=== PATIENT | female | born 1970 | race Caucasian/White ===

== ENCOUNTER → 2016-05-30 | Outpatient (REF) | payer OTHER ==
[~2016-05-30] MED LIST: FLON0.054; VITAMINB12 IM
[2016-05-30 17:48] LABS: LUTEINIZING HORMONE 4.3 mIU/mL
[2016-05-30 17:49] LABS: FOLATE 10.8 NG/ML (>5.4); FOLLICLE STIMULATING HORMONE 5.5 mIU/mL; VITAMIN B12 LEVEL 289 PG/ML (247-911)
[2016-05-30 17:52] LABS: ALBUMIN 3.7 GM/DL (3.2-5.2); ALBUMIN/GLOBULIN RATIO 0.95 (1.00-1.93); ALKALINE PHOSPHATASE 111 U/L (45-117); ALT/SGPT 25 U/L (12-78); ANION GAP 8 MEQ/L (8-16); AST/SGOT 16 U/L (15-37); BILIRUBIN,TOTAL 0.2 MG/DL (0.2-1.0); BLOOD UREA NITROGEN 14 MG/DL (7-18); CALCIUM LEVEL 8.6 MG/DL (8.5-10.1); CARBON DIOXIDE LEVEL 29 MEQ/L (21-32); CHLORIDE LEVEL 104 MEQ/L (98-107); CREATININE FOR GFR 0.89 MG/DL (0.55-1.02); GLOMERULAR FILTRATION RATE > 60.0 (>58); GLUCOSE, FASTING 75 MG/DL (70-105); POTASSIUM SERUM 4.2 MEQ/L (3.5-5.1); SODIUM LEVEL 141 MEQ/L (136-145); THYROXINE (T4) 8.1 UG/DL (4.5-12.0); TOTAL PROTEIN 7.6 GM/DL (6.4-8.2)
[2016-05-30 18:06] LABS: DIFF SLIDE NUMBER 309; MEAN CORPUSCULAR HEMOGLOBIN 23.9 pg (27.0-33.0); MEAN CORPUSCULAR HGB CONC 32.1 g/dl (32.0-36.5); MEAN CORPUSCULAR VOLUME 74.5 fl (80.0-96.0); PLATELET COUNT, AUTOMATED 316 k/mm3 (150-450); RED CELL DISTRIBUTION WIDTH 14.4 % (11.5-14.5); WHITE BLOOD COUNT 9.1 K/mm3 (4.0-10.0)
[2016-05-30 21:05] LABS: BASOPHILS 1 % (0-4); EOSINOPHILS 1 % (0-5); MICROCYTOSIS 2+
[2016-05-30 21:06] LABS: ANISOCYTOSIS 1+
[2016-05-30 21:54] LABS: ERYTHROCYTE SEDIMENTATION RATE 9 mm/hr (0-20)
== END ==
LOC: M SFHCCLAY 13:59
PROVIDERS: ATTEND Family Medicine
DX: R50.9 Fever, unspecified (principal); R53.83 Other fatigue; R53.81 Other malaise; E53.8 Deficiency of other specified B group vitamins; R00.2 Palpitations; M25.50 Pain in unspecified joint; N95.1 Menopausal and female climacteric states; E55.9 Vitamin D deficiency, unspecified

== ENCOUNTER → 2016-07-07 | Outpatient (CLI) | payer OTHER ==
--- NOTE | 2016-07-07 14:49 | REP ---
Clinical: Cough . Comparison: 06/15/2005 . Technique: PA and lateral. Findings: The mediastinum and cardiac silhouette are normal. The lung to are clear and without acute consolidation, effusion, or pneumothorax. The skeletal structures are intact and normal. Impression: No acute cardiopulmonary process. If the patient remains symptomatic consider chest CT for further investigation.
== END ==
LOC: M CLY 14:12
PROVIDERS: ATTEND Family Medicine
DX: R05 Cough (principal)

== ENCOUNTER → 2016-07-07 | Outpatient (REF) | payer OTHER | LOC: M SFHCCLAY 13:57 | PROVIDERS: ATTEND Family Medicine | DX: R05 Cough (principal); R06.02 Shortness of breath; R09.1 Pleurisy ==

== ENCOUNTER → 2016-07-08 | Outpatient (REF) | payer OTHER ==
[2016-07-08 11:54] LABS: BASO % 0.1 % (0.0-1.0); EOS % 0.2 % (0.0-3.0); LARGE UNSTAINED CELL % 0.6 % (0.0-4.0); LYMPH # 1.1 K/mm3 (1.5-4.5); LYMPH % 14.5 % (24.0-44.0); MEAN CORPUSCULAR HEMOGLOBIN 22.9 pg (27.0-33.0); MEAN CORPUSCULAR HGB CONC 31.3 g/dl (32.0-36.5); MEAN CORPUSCULAR VOLUME 73.2 fl (80.0-96.0); MONO # 0.3 K/mm3 (0.0-0.8); MONO % 3.4 % (0.0-5.0); NEUTROPHILS # 6.2 K/mm3 (1.8-7.7); NEUTROPHILS % 81.3 % (36.0-66.0); PLATELET COUNT, AUTOMATED 307 k/mm3 (150-450); RED CELL DISTRIBUTION WIDTH 14.3 % (11.5-14.5); WHITE BLOOD COUNT 7.6 K/mm3 (4.0-10.0)
[2016-07-08 12:11] LABS: ALBUMIN 3.7 GM/DL (3.2-5.2); ALBUMIN/GLOBULIN RATIO 1.03 (1.00-1.93); ALKALINE PHOSPHATASE 105 U/L (45-117); ALT/SGPT 27 U/L (12-78); ANION GAP 11 MEQ/L (8-16); AST/SGOT 15 U/L (15-37); BILIRUBIN,TOTAL 0.3 MG/DL (0.2-1.0); BLOOD UREA NITROGEN 13 MG/DL (7-18); CALCIUM LEVEL 8.5 MG/DL (8.5-10.1); CARBON DIOXIDE LEVEL 22 MEQ/L (21-32); CHLORIDE LEVEL 108 MEQ/L (98-107); CREATININE FOR GFR 0.89 MG/DL (0.55-1.02); GLOMERULAR FILTRATION RATE > 60.0 (>58); GLUCOSE, FASTING 146 MG/DL (70-105); POTASSIUM SERUM 4.4 MEQ/L (3.5-5.1); SODIUM LEVEL 141 MEQ/L (136-145); TOTAL PROTEIN 7.3 GM/DL (6.4-8.2)
== END ==
LOC: M SFHCCLAY 07:28
PROVIDERS: ATTEND Family Medicine
DX: R05 Cough (principal); R06.02 Shortness of breath

== ENCOUNTER → 2016-07-11 | Outpatient (CLI) | payer OTHER ==
[~2016-07-11] MED LIST changes: +ISOVUE-370 76% 100ML VIAL (Q9967) As Ordered ONE
--- NOTE | 2016-07-11 14:47 | REP ---
Chest CT, pulmonary CT angiography: There are no emboli in the pulmonary trunk or in the central right or left pulmonary arteries. There are no emboli in the pulmonary artery lobe or segment branches. The lung to are clear. There are no masses, infiltrates or effusions. There is no mediastinal or hilar lymphadenopathy. There is no axillary lymphadenopathy. The thoracic aorta is unremarkable. Cardiac size is normal. There is no pericardial effusion. The visualized hepatic parenchyma, gallbladder, pancreas and spleen are homogeneous, normal size and unremarkable. The adrenals are unremarkable. Impression: There are no pulmonary emboli. Otherwise, negative CT study of the chest. Signed by Bryan Howard MD 07/11/2016 02:38 P
== END ==
LOC: M RAD 13:11
PROVIDERS: ATTEND Family Medicine
DX: R06.02 Shortness of breath (principal)
CPT/HCPCS: 71275; Q9967

== ENCOUNTER 2016-10-28 08:25 | Outpatient (CLI) | payer OTHER ==
[~2016-10-28] VITALS: Ht 172.7 cm; Wt 101.4 kg
[~2016-10-28 08:25] MED LIST changes: -ISOVUE-370 76% 100ML VIAL (Q9967) As Ordered ONE
[2016-10-28] MEDS ORDERED: methylPREDNISolone INJ 125 MG/2 ML VIAL (J2930) IV ONE (08:45)
[2016-10-28] MEDS ORDERED: ALBU17IN2 INH (08:52)
[2016-10-28] MEDS ORDERED: CYMB1CAP5 PO (08:52)
[2016-10-28] MEDS ORDERED: EPIP0.3I2 SC (08:52)
[2016-10-28] MEDS ORDERED: TYLE325C PO (08:52)
[2016-10-28] MEDS ORDERED: CYAN1000VL IM (08:52)
[2016-10-28] MEDS ORDERED: IRON DEXTRAN INJ 25 MG in NS 50 ML IV ONE (09:00)
[2016-10-28] MEDS ORDERED: IRON DEXTRAN IV ONE (10:00)
[2016-10-28] MEDS ORDERED: NS IV ONE (10:00)
== END 2016-10-28 13:45 | disposition home or self-care (01) ==
LOC: M INFU 08:25
PROVIDERS: ATTEND Family Medicine
DX: D50.9 Iron deficiency anemia, unspecified (principal); Z88.1 Allergy status to other antibiotic agents; Z88.2 Allergy status to sulfonamides; Z91.013 Allergy to seafood; Z91.018 Allergy to other foods; Z91.010 Allergy to peanuts; Z79.899 Other long term (current) drug therapy
CPT/HCPCS: 96365; 96366; J1750; J2930

== ENCOUNTER → 2016-11-24 | Outpatient (REF) | payer OTHER ==
[~2016-11-24] MED LIST changes: +ALBU17IN2 INH; +CYAN1000VL IM; +CYMB1CAP5 PO; +EPIP0.3I2 SC; +TYLE325C PO
[2016-11-24 17:43] LABS: FERRITIN 29 NG/ML (8-252)
[2016-11-24 19:05] LABS: BASO % 0.4 % (0.0-1.0); EOS # 0.3 K/mm3 (0.0-0.50); EOS % 3.6 % (0.0-3.0); LARGE UNSTAINED CELL # 0.1 K/mm3 (0.0-0.4); LARGE UNSTAINED CELL % 1.5 % (0.0-4.0); LYMPH # 2.4 K/mm3 (1.5-4.5); LYMPH % 27.1 % (24.0-44.0); MEAN CORPUSCULAR HEMOGLOBIN 23.5 pg (27.0-33.0); MEAN CORPUSCULAR HGB CONC 31.3 g/dl (32.0-36.5); MEAN CORPUSCULAR VOLUME 75.1 fl (80.0-96.0); MONO # 0.5 K/mm3 (0.0-0.8); MONO % 5.8 % (0.0-5.0); NEUTROPHILS # 5.1 K/mm3 (1.8-7.7); NEUTROPHILS % 61.6 % (36.0-66.0); PLATELET COUNT, AUTOMATED 279 k/mm3 (150-450); RED CELL DISTRIBUTION WIDTH 18.5 % (11.5-14.5); WHITE BLOOD COUNT 8.3 K/mm3 (4.0-10.0)
== END ==
LOC: M SFHCCLAY 13:03
PROVIDERS: ATTEND Family Medicine
DX: D50.9 Iron deficiency anemia, unspecified (principal)

== ENCOUNTER 2016-12-20 07:37 | Outpatient (CLI) | payer OTHER ==
[~2016-12-20] VITALS: Ht 172.7 cm; Wt 101.2 kg
[2016-12-20] MEDS ORDERED: methylPREDNISolone INJ 125 MG/2 ML VIAL (J2930) IV ONE (08:15)
[2016-12-20] MEDS ORDERED: IRON SUCROSE 25 MG in NS 50 ML IV ONE (08:30)
[2016-12-20] MEDS ORDERED: IRON SUCROSE 275 MG in NS 250 ML IV ONE (09:30)
[2016-12-20] MEDS ORDERED: IRON SUCROSE 300 MG in NS 250 ML IV ONE (09:30)
[2016-12-20] MEDS ORDERED: IRON SUCROSE 475 MG in NS 250 ML IV ONE (09:30)
== END 2016-12-20 13:45 | disposition home or self-care (01) ==
LOC: M INFU 07:37
PROVIDERS: ATTEND Family Medicine
DX: D50.9 Iron deficiency anemia, unspecified (principal); Z79.899 Other long term (current) drug therapy; Z88.1 Allergy status to other antibiotic agents; Z88.2 Allergy status to sulfonamides
CPT/HCPCS: 96365; 96366; J1756; J2930

== ENCOUNTER 2017-01-26 07:16 | Outpatient (CLI) | payer OTHER ==
[~2017-01-26] VITALS: Ht 172.7 cm; Wt 101.4 kg
[2017-01-26] MEDS ORDERED: IRON SUCROSE 25 MG in NS 50 ML IV ONE (07:45)
[2017-01-26] MEDS ORDERED: methylPREDNISolone INJ 125 MG/2 ML VIAL (J2930) IV ONE (07:45)
[2017-01-26] MEDS ORDERED: IRON SUCROSE 275 MG in NS 250 ML IV ONE (09:00)
== END 2017-01-26 13:00 | disposition home or self-care (01) ==
LOC: M INFU 07:16
PROVIDERS: ATTEND Family Medicine
DX: D50.9 Iron deficiency anemia, unspecified (principal); Z88.2 Allergy status to sulfonamides; Z91.013 Allergy to seafood; Z91.018 Allergy to other foods; Z88.1 Allergy status to other antibiotic agents; Z91.010 Allergy to peanuts; Z79.899 Other long term (current) drug therapy
CPT/HCPCS: 96365; 96366; J1756; J2930

== ENCOUNTER 2017-06-05 08:25 | Outpatient (CLI) | payer OTHER ==
[2017-06-05] MEDS: methylPREDNISolone INJ 125 MG/2 ML VIAL (J2930) IV (08:55)
[2017-06-05] MEDS: IRON SUCROSE 300 MG in NS 250 ML IV (09:13)
== END 2017-06-05 12:30 | disposition home or self-care (01) ==
LOC: M INFU 08:25
DX: D50.9 Iron deficiency anemia, unspecified (principal); I10 Essential (primary) hypertension; K21.9 Gastro-esophageal reflux disease without esophagitis; M79.7 Fibromyalgia; Z79.899 Other long term (current) drug therapy; Z91.010 Allergy to peanuts; Z91.013 Allergy to seafood; Z91.018 Allergy to other foods; Z88.2 Allergy status to sulfonamides; Z88.8 Allergy status to other drugs, medicaments and biological substances
CPT/HCPCS: J1756

== ENCOUNTER → 2017-09-21 | Outpatient (REF) | payer OTHER ==
[2017-09-21 11:53] LABS: ALBUMIN 3.8 GM/DL (3.2-5.2); ALBUMIN/GLOBULIN RATIO 1.09 (1.00-1.93); ALKALINE PHOSPHATASE 102 U/L (45-117); ALT/SGPT 37 U/L (12-78); AMYLASE 32 U/L (25-115); ANION GAP 6 MEQ/L (8-16); AST/SGOT 22 U/L (7-37); BASO % 0.3 % (0.0-1.0); BILIRUBIN,TOTAL 0.5 MG/DL (0.2-1.0); BLOOD UREA NITROGEN 16 MG/DL (7-18); CARBON DIOXIDE LEVEL 31 MEQ/L (21-32); CHLORIDE LEVEL 102 MEQ/L (98-107); CREATININE FOR GFR 0.91 MG/DL (0.55-1.30); EOS # 0.2 10^3/uL (0.0-0.50); EOS % 2.8 % (0.0-3.0); GLOMERULAR FILTRATION RATE > 60.0 (>58); GLUCOSE, FASTING 104 MG/DL (70-100); HEMATOCRIT 44.2 % (36.0-47.0); HEMOGLOBIN 14.8 g/dl (12.0-15.5); IMMATURE GRANULOCYTE % 0.4 % (0-3.0); IRON (FE) 79 UG/DL (50-170); LIPASE 150 U/L (73-393); LYMPH # 2.3 10^3/uL (1.5-4.5); LYMPH % 29.6 % (24.0-44.0); MAGNESIUM LEVEL 2.1 MG/DL (1.8-2.4); MEAN CORPUSCULAR HEMOGLOBIN 27.3 pg (27.0-33.0); MEAN CORPUSCULAR HGB CONC 33.5 g/dl (32.0-36.5); MEAN CORPUSCULAR VOLUME 81.5 fl (80.0-96.0); MONO # 0.5 10^3/uL (0.0-0.8); MONO % 6.5 % (0.0-5.0); NEUTROPHILS # 4.7 10^3/uL (1.8-7.7); NEUTROPHILS % 60.4 % (36.0-66.0); PLATELET COUNT, AUTOMATED 284 10^3/uL (150-450); POTASSIUM SERUM 3.2 MEQ/L (3.5-5.1); RED BLOOD COUNT 5.42 10^6/uL (4.00-5.40); RED CELL DISTRIBUTION WIDTH 13.4 % (11.5-14.5); SODIUM LEVEL 139 MEQ/L (136-145); TOTAL PROTEIN 7.3 GM/DL (6.4-8.2); WHITE BLOOD COUNT 7.8 10^3/uL (4.0-10.0)
[2017-09-26 14:16] LABS: VITAMIN D 1,25 DIHYDROXY 50.3 pg/mL (19.9-79.3)
[2017-09-26 14:16] LABS: TISSUE TRANSGLUTAMINASE IgA <2 U/mL (0-3)
== END ==
LOC: M SFHCCLAY 08:05
DX: D50.9 Iron deficiency anemia, unspecified (principal); R10.84 Generalized abdominal pain; E55.9 Vitamin D deficiency, unspecified; I10 Essential (primary) hypertension
CPT/HCPCS: 82150

== ENCOUNTER → 2017-11-14 | Outpatient (CLI) | payer OTHER ==
[2017-11-14 15:45] LABS: FREE T4 0.91 NG/DL (0.76-1.46); THYROID STIMULATING HORMONE 0.792 uIU/ML (0.358-3.740)
[2017-11-16 14:17] LABS: TISSUE TRANSGLUTAMINASE IgA <2 U/mL (0-3)
== END ==
LOC: M LAB 14:46
DX: R63.4 Abnormal weight loss (principal)
CPT/HCPCS: 84443

== ENCOUNTER 2017-12-26 11:13 | Day surgery (SDC) | payer OTHER ==
[~2017-12-26 11:13] MED LIST changes: -ALBU17IN2 INH; -CYAN1000VL IM; -CYMB1CAP5 PO; -EPIP0.3I2 SC; -FLON0.054; +LIDOCAINE 2% INJ 100 MG/5 ML SDV (FOR ANES.) As Ordered; +PROPOFOL 200 MG/20 ML VIAL As Ordered; -TYLE325C PO; -VITAMINB12 IM; +fentaNYL 100 MCG/2 ML INJECTION (J3010) As Ordered
[2017-12-26] MEDS: NS 1,000 ML IV (11:15)
[2017-12-26] MEDS ORDERED: PROPOFOL 200 MG/20 ML VIAL As Ordered (14:07)
== END 2017-12-26 15:00 | disposition home or self-care (01) ==
LOC: M OPP 11:13
DX: R10.84 Generalized abdominal pain (principal); R63.4 Abnormal weight loss; D50.9 Iron deficiency anemia, unspecified; I10 Essential (primary) hypertension; K44.9 Diaphragmatic hernia without obstruction or gangrene; K21.9 Gastro-esophageal reflux disease without esophagitis; R12 Heartburn; J45.909 Unspecified asthma, uncomplicated; Z88.1 Allergy status to other antibiotic agents; Z88.8 Allergy status to other drugs, medicaments and biological substances; Z88.2 Allergy status to sulfonamides; Z91.013 Allergy to seafood; Z91.010 Allergy to peanuts; Z79.899 Other long term (current) drug therapy; Z80.3 Family history of malignant neoplasm of breast
CPT/HCPCS: 45378

== ENCOUNTER 2018-01-05 07:16 | Outpatient (CLI) | payer OTHER ==
[2018-01-05] MEDS: methylPREDNISolone INJ 125 MG/2 ML VIAL (J2930) IV (07:50)
[2018-01-05] MEDS: IRON SUCROSE 300 MG in NS 250 ML OVER 90 MIN. IV (08:09)
== END 2018-01-05 11:30 | disposition home or self-care (01) ==
LOC: M INFU 07:16
DX: D50.9 Iron deficiency anemia, unspecified (principal); Z88.2 Allergy status to sulfonamides; Z88.1 Allergy status to other antibiotic agents; Z91.013 Allergy to seafood; Z91.010 Allergy to peanuts
CPT/HCPCS: J1756

== ENCOUNTER → 2018-07-02 | Outpatient (REF) | payer BC ==
[~2018-07-02] MED LIST changes: +ACET1TAB55 PO; +ALBU17IN2 INH; +CHLO25TA PO; +CYAN1000VL IM; +CYMB1CAP5 PO; +EPIP0.3I2 SC; +FLON0.054; -LIDOCAINE 2% INJ 100 MG/5 ML SDV (FOR ANES.) As Ordered; +PREG50CA PO; -PROPOFOL 200 MG/20 ML VIAL As Ordered; +TRAZ-186 PO; +TYLE325C PO; +VITAMINB12 IM; -fentaNYL 100 MCG/2 ML INJECTION (J3010) As Ordered
[2018-07-02 11:24] LABS: BASO % 0.3 % (0.0-1.0); EOS # 0.2 10^3/uL (0.0-0.50); EOS % 2.9 % (0.0-3.0); HEMATOCRIT 45.6 % (36.0-47.0); HEMOGLOBIN 14.9 g/dl (12.0-15.5); LYMPH # 2.2 10^3/uL (1.5-4.5); MEAN CORPUSCULAR HEMOGLOBIN 27.1 pg (27.0-33.0); MEAN CORPUSCULAR HGB CONC 32.7 g/dl (32.0-36.5); MEAN CORPUSCULAR VOLUME 82.9 fl (80.0-96.0); MONO # 0.4 10^3/uL (0.0-0.8); MONO % 5.5 % (0.0-5.0); NEUTROPHILS # 4.9 10^3/uL (1.8-7.7); NEUTROPHILS % 62.3 % (36.0-66.0); PLATELET COUNT, AUTOMATED 327 10^3/uL (150-450); WHITE BLOOD COUNT 7.9 10^3/uL (4.0-10.0)
[2018-07-02 11:43] LABS: HEMOGLOBIN A1c 5.5 %
[2018-07-02 12:37] LABS: ALBUMIN 3.7 GM/DL (3.2-5.2); ALT/SGPT 31 U/L (12-78); BILIRUBIN,TOTAL 0.4 MG/DL (0.2-1.0); BLOOD UREA NITROGEN 16 MG/DL (7-18); CALCIUM LEVEL 8.7 MG/DL (8.5-10.1); CARBON DIOXIDE LEVEL 25 MEQ/L (21-32); CHLORIDE LEVEL 107 MEQ/L (98-107); CREATININE FOR GFR 0.88 MG/DL (0.55-1.30); GLOMERULAR FILTRATION RATE > 60.0 (>58); GLUCOSE, FASTING 94 MG/DL (70-100); IRON (FE) 57 UG/DL (50-170); POTASSIUM SERUM 4.4 MEQ/L (3.5-5.1); SODIUM LEVEL 140 MEQ/L (136-145); TOTAL PROTEIN 7.1 GM/DL (6.4-8.2)
== END ==
LOC: M SFHCCLAY 08:45
PROVIDERS: ATTEND Family Medicine
DX: I10 Essential (primary) hypertension (principal); D50.9 Iron deficiency anemia, unspecified; R73.01 Impaired fasting glucose

== ENCOUNTER 2018-07-12 09:15 | Outpatient (CLI) | payer BC ==
[~2018-07-12] VITALS: Ht 167.6 cm; Wt 97.3 kg
[2018-07-12] MEDS ORDERED: methylPREDNISolone INJ 125 MG/2 ML VIAL (J2930) IV ONE (09:30)
[2018-07-12 09:32] VITALS: BP 144/79
[2018-07-12] MEDS ORDERED: IRON SUCROSE 300 MG in NS 250 ML IV ONE (10:00)
[2018-07-12 10:10] VITALS: BP 139/86
[2018-07-12 11:10] VITALS: BP 143/82
[2018-07-12 11:34] VITALS: BP 153/84
[2018-07-12 12:00] VITALS: BP 156/81
== END 2018-07-12 12:05 | disposition home or self-care (01) ==
LOC: M INFU 09:15
PROVIDERS: ATTEND Family Medicine
DX: D50.9 Iron deficiency anemia, unspecified (principal); Z88.1 Allergy status to other antibiotic agents; Z88.2 Allergy status to sulfonamides; Z91.013 Allergy to seafood; Z91.010 Allergy to peanuts
CPT/HCPCS: 96365; 96366; 96375; J1756; J2930

== ENCOUNTER 2019-01-16 06:55 | Outpatient (CLI) | payer BC ==
[~2019-01-16] VITALS: Ht 167.6 cm; Wt 97.3 kg
[~2019-01-16 06:55] MED LIST changes: +PROV108A INH
[2019-01-16 07:05] VITALS: BP 134/81
[2019-01-16] MEDS ORDERED: methylPREDNISolone INJ 125 MG/2 ML VIAL (J2930) IV ONE (07:30)
[2019-01-16] MEDS ORDERED: TRAM50TA2 PO (07:43)
[2019-01-16 07:50] VITALS: BP 140/78
[2019-01-16] MEDS ORDERED: IRON SUCROSE 300 MG in NS 250 ML OVER 90 MIN. IV ONE (08:00)
[2019-01-16 08:50] VITALS: BP 149/86
[2019-01-16 09:50] VITALS: BP 147/82
[2019-01-16 11:10] VITALS: BP 162/83
== END 2019-01-16 11:10 | disposition home or self-care (01) ==
LOC: M INFU 06:55
PROVIDERS: ATTEND Family Medicine
DX: D50.9 Iron deficiency anemia, unspecified (principal); Z88.2 Allergy status to sulfonamides; Z88.1 Allergy status to other antibiotic agents; Z91.010 Allergy to peanuts; Z91.013 Allergy to seafood
CPT/HCPCS: 96365; 96366; 96375; J1756; J2930

== ENCOUNTER 2019-05-09 08:16 | Outpatient (CLI) | payer BC ==
[~2019-05-09] VITALS: Ht 167.6 cm; Wt 97.3 kg
[~2019-05-09 08:16] MED LIST changes: +TRAM50TA2 PO
[2019-05-09 08:20] VITALS: BP 136/94
[2019-05-09] MEDS ORDERED: CHLO25TA PO (08:40)
[2019-05-09] MEDS ORDERED: methylPREDNISolone INJ 125 MG/2 ML VIAL (J2930) As Ordered ONE (08:45)
[2019-05-09] MEDS ORDERED: methylPREDNISolone INJ 125 MG/2 ML VIAL (J2930) IV ONE (09:00)
[2019-05-09 09:45] VITALS: BP 135/80
[2019-05-09] MEDS ORDERED: IRON SUCROSE 300 MG in NS 250 ML OVER 90 MIN. IV ONE (10:00)
[2019-05-09 10:45] VITALS: BP 145/81
[2019-05-09 12:30] VITALS: BP 136/84
== END 2019-05-09 12:30 | disposition home or self-care (01) ==
LOC: M INFU 08:16
PROVIDERS: ATTEND Family Medicine
DX: D50.9 Iron deficiency anemia, unspecified (principal); Z88.1 Allergy status to other antibiotic agents; Z88.2 Allergy status to sulfonamides; Z91.010 Allergy to peanuts; Z91.013 Allergy to seafood
CPT/HCPCS: 96365; 96366; J1756; J2930

== ENCOUNTER → 2019-06-13 | Outpatient (REF) | payer BC ==
[2019-06-13 16:58] LABS: BASO % 0.5 % (0.0-1.0); EOS # 0.2 10^3/uL (0.0-0.5); EOS % 2.7 % (0.0-3.0); HEMATOCRIT 46.9 % (36.0-47.0); HEMOGLOBIN 15.4 g/dl (12.0-15.5); LYMPH # 1.6 10^3/uL (1.5-5.0); LYMPH % 29.2 % (24.0-44.0); MEAN CORPUSCULAR HEMOGLOBIN 27.3 pg (27.0-33.0); MEAN CORPUSCULAR HGB CONC 32.8 g/dl (32.0-36.5); MEAN CORPUSCULAR VOLUME 83.2 fl (80.0-96.0); MONO # 0.4 10^3/uL (0.0-0.8); MONO % 6.4 % (0.0-5.0); NEUTROPHILS # 3.3 10^3/uL (1.5-8.5); NEUTROPHILS % 59.6 % (36.0-66.0); PLATELET COUNT, AUTOMATED 301 10^3/uL (150-450); RED BLOOD COUNT 5.64 10^6/uL (4.00-5.40); WHITE BLOOD COUNT 5.6 10^3/uL (4.0-10.0)
[2019-06-13 17:25] LABS: ALBUMIN 3.6 GM/DL (3.2-5.2); ALT/SGPT 57 U/L (12-78); BILIRUBIN,TOTAL 0.3 MG/DL (0.2-1.0); BLOOD UREA NITROGEN 12 MG/DL (7-18); CALCIUM LEVEL 8.9 MG/DL (8.5-10.1); CARBON DIOXIDE LEVEL 33 MEQ/L (21-32); CHLORIDE LEVEL 100 MEQ/L (98-107); CREATININE FOR GFR 0.87 MG/DL (0.55-1.30); FOLATE 12.8 NG/ML (>5.4); GLOMERULAR FILTRATION RATE > 60.0 (>51); GLUCOSE, FASTING 109 MG/DL (70-100); POTASSIUM SERUM 3.4 MEQ/L (3.5-5.1); SODIUM LEVEL 138 MEQ/L (136-145); THYROID STIMULATING HORMONE 0.901 uIU/ML (0.358-3.740); TOTAL PROTEIN 7.4 GM/DL (6.4-8.2); VITAMIN B12 LEVEL 300 PG/ML (247-911)
== END ==
LOC: M SFHCCLAY 10:25
PROVIDERS: ATTEND Family Medicine
DX: R23.2 Flushing (principal); D50.9 Iron deficiency anemia, unspecified; R20.2 Paresthesia of skin; R20.0 Anesthesia of skin; I10 Essential (primary) hypertension

== ENCOUNTER → 2019-11-19 | Outpatient (REF) | payer BC ==
[2019-12-22 15:40] LABS: HEMATOCRIT 41.9 % (36.0-47.0); HEMOGLOBIN 13.6 g/dl (12.0-15.5); MEAN CORPUSCULAR HEMOGLOBIN 27.9 pg (27.0-33.0); MEAN CORPUSCULAR HGB CONC 32.5 g/dl (32.0-36.5); PLATELET COUNT, AUTOMATED 268 10^3/uL (150-450); RED BLOOD COUNT 4.87 10^6/uL (4.00-5.40); WHITE BLOOD COUNT 8.9 10^3/uL (4.0-10.0)
[2020-01-03 16:58] LABS: BLOOD UREA NITROGEN 17 MG/DL (7-18); CALCIUM LEVEL 8.9 MG/DL (8.5-10.1); CARBON DIOXIDE LEVEL 28 MEQ/L (21-32); CHLORIDE LEVEL 108 MEQ/L (98-107); CREATININE FOR GFR 0.94 MG/DL (0.55-1.30); FREE T4 0.92 NG/DL (0.76-1.46); GLOMERULAR FILTRATION RATE > 60.0 (>51); GLUCOSE, FASTING 88 MG/DL (70-100); POTASSIUM SERUM 4.7 MEQ/L (3.5-5.1); SODIUM LEVEL 140 MEQ/L (136-145); THYROID STIMULATING HORMONE 0.988 uIU/ML (0.358-3.740)
== END ==
LOC: M SFHCCLAY 13:15
PROVIDERS: ATTEND Family Medicine
DX: R68.83 Chills (without fever) (principal); R19.7 Diarrhea, unspecified; R53.83 Other fatigue

== ENCOUNTER → 2020-06-09 | Outpatient (REF) | payer BC ==
[2020-06-09 16:21] LABS: BASO % 0.3 % (0.0-1.0); EOS # 0.2 10^3/uL (0.0-0.5); EOS % 1.7 % (0.0-3.0); HEMATOCRIT 45.9 % (36.0-47.0); HEMOGLOBIN 14.6 g/dl (12.0-15.5); LYMPH # 2.6 10^3/uL (1.5-5.0); LYMPH % 27.7 % (24.0-44.0); MEAN CORPUSCULAR HEMOGLOBIN 27.8 pg (27.0-33.0); MEAN CORPUSCULAR HGB CONC 31.8 g/dl (32.0-36.5); MEAN CORPUSCULAR VOLUME 87.3 fl (80.0-96.0); MONO # 0.6 10^3/uL (0.0-0.8); MONO % 6.7 % (2.0-8.0); NEUTROPHILS # 5.9 10^3/uL (1.5-8.5); NEUTROPHILS % 62.9 % (36.0-66.0); PLATELET COUNT, AUTOMATED 283 10^3/uL (150-450); RED BLOOD COUNT 5.26 10^6/uL (4.00-5.40); WHITE BLOOD COUNT 9.4 10^3/uL (4.0-10.0)
== END ==
LOC: M SFHCCLAY 14:05
PROVIDERS: ATTEND Family Medicine
DX: D50.9 Iron deficiency anemia, unspecified (principal)

== ENCOUNTER → 2020-07-03 | Outpatient (CLI) | payer BC ==
--- NOTE | 2020-07-03 17:19 | REP ---
INDICATION: SHORTNESS OF BREATH COMPARISON: 07/07/2016. TECHNIQUE: PA/Lateral FINDINGS: Lungs: Clear, no infiltrate. Heart: Normal in size. Mediastinum: Mediastinal silhouette unremarkable. Pleural angles: Unremarkable.. Bones and soft tissues: Unremarkable. IMPRESSION: No acute pulmonary disease. <Electronically signed by Bryan Lundy > 07/03/20 [id number]
== END ==
LOC: M CLY 15:08
PROVIDERS: ATTEND Family Medicine
DX: R06.02 Shortness of breath (principal)

== ENCOUNTER → 2020-09-01 | Outpatient (REF) | payer BC | LOC: M SFHCCLAY 14:50 | PROVIDERS: ATTEND Physician Assistant | DX: R05 Cough (principal) ==

== ENCOUNTER → 2020-09-28 | Outpatient (REF) | payer BC ==
[2020-09-29 11:43] LABS: BASO % 0.3 % (0.0-1.0); EOS # 0.3 10^3/uL (0.0-0.5); EOS % 2.7 % (0.0-3.0); HEMATOCRIT 47.1 % (36.0-47.0); LYMPH # 2.8 10^3/uL (1.5-5.0); LYMPH % 29.1 % (24.0-44.0); MEAN CORPUSCULAR HGB CONC 31.8 g/dl (32.0-36.5); MONO # 0.7 10^3/uL (0.0-0.8); MONO % 6.7 % (2.0-8.0); NEUTROPHILS # 5.8 10^3/uL (1.5-8.5); NEUTROPHILS % 60.7 % (36.0-66.0); PLATELET COUNT, AUTOMATED 249 10^3/uL (150-450); RED BLOOD COUNT 5.35 10^6/uL (4.00-5.40); WHITE BLOOD COUNT 9.6 10^3/uL (4.0-10.0)
[2020-09-29 12:10] LABS: ALBUMIN 4.1 GM/DL (3.2-5.2); ALT/SGPT 67 U/L (12-78); BILIRUBIN,TOTAL 0.5 MG/DL (0.2-1.0); BLOOD UREA NITROGEN 17 MG/DL (7-18); CALCIUM LEVEL 8.9 MG/DL (8.5-10.1); CARBON DIOXIDE LEVEL 28 MEQ/L (21-32); CHLORIDE LEVEL 107 MEQ/L (98-107); CREATININE FOR GFR 0.83 MG/DL (0.55-1.30); GLOMERULAR FILTRATION RATE > 60.0 (>51); GLUCOSE, FASTING 79 MG/DL (70-100); IRON (FE) 111 UG/DL (50-170); POTASSIUM SERUM 5.9 MEQ/L (3.5-5.1); SODIUM LEVEL 138 MEQ/L (136-145); TOTAL PROTEIN 7.4 GM/DL (6.4-8.2)
== END ==
LOC: M SFHCCLAY 13:49
PROVIDERS: ATTEND Family Medicine
DX: I10 Essential (primary) hypertension (principal); D50.9 Iron deficiency anemia, unspecified

== ENCOUNTER → 2020-09-28 | Outpatient (CLI) | payer BC ==
--- NOTE | 2020-09-28 14:56 | REP ---
INDICATION: LOW BACK PAIN. COMPARISON: None. TECHNIQUE: Five views FINDINGS: Five views of the lumbosacral spine show no acute fracture, dislocation or subluxation. The intervertebral disc spaces are symmetric and well maintained. There is no spondylolysis or spondylolisthesis. The pedicles are intact bilaterally and there is no destructive osseous lesion. IMPRESSION: Unremarkable lumbosacral spine series. <Electronically signed by Tyrone Gatson > 09/28/20 [id number]
== END ==
LOC: M CLY 14:05
PROVIDERS: ATTEND Family Medicine
DX: M54.5 Low back pain (principal)

== ENCOUNTER → 2020-10-08 | Outpatient (CLI) | payer BC ==
--- NOTE | 2020-10-08 20:42 | REPVR ---
PROCEDURE INFORMATION: Exam: MR Lumbar Spine Without Contrast Exam date and time: 10/08/2020 11:18 AM Age: 50 years old Clinical indication: Low back pain; Additional info: Lbp w/joni leg pain TECHNIQUE: Imaging protocol: Multiplanar magnetic resonance images of the lumbar spine without intravenous contrast. COMPARISON: CR SPINE LS COMPLETE 09/28/2020 2:11 PM FINDINGS: Vertebral body heights are maintained. Degenerative disc height loss at L5-S1. No abnormal marrow signal. No cord compression. No abnormal cord signal. Conus medullaris terminates at the L1 level. Paravertebral soft tissues are unremarkable. L1-L2: No significant canal or foraminal narrowing. L2-L3: No significant canal or foraminal narrowing. L3-L4: No significant canal or foraminal narrowing. L4-L5: Mild broad-based disc bulge and facet hypertrophy causes mild bilateral foraminal narrowing. No significant canal narrowing. L5-S1: Broad-based disc bulge and facet hypertrophy cause mild left and moderate right foraminal narrowing. No significant canal narrowing. 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 No MR evidence of nerve root compression. Electronically signed by: Jhonny Segura On 10/08/2020 20:41:57 PM
== END ==
LOC: M PLAIMG 10:39
PROVIDERS: ATTEND Family Medicine
DX: M79.605 Pain in left leg (principal); M79.604 Pain in right leg; M51.26 Other intervertebral disc displacement, lumbar region; M51.27 Other intervertebral disc displacement, lumbosacral region; M47.816 Spondylosis without myelopathy or radiculopathy, lumbar region

== ENCOUNTER → 2020-11-25 | Outpatient (CLI) | payer BC ==
[2020-11-25 14:35] LABS: BASO % 0.5 % (0.0-1.0); EOS # 0.2 10^3/uL (0.0-0.5); EOS % 2.3 % (0.0-3.0); HEMATOCRIT 46.2 % (36.0-47.0); HEMOGLOBIN 14.9 g/dl (12.0-15.5); LYMPH # 2.4 10^3/uL (1.5-5.0); LYMPH % 28.7 % (24.0-44.0); MEAN CORPUSCULAR HGB CONC 32.3 g/dl (32.0-36.5); MEAN CORPUSCULAR VOLUME 86.7 fl (80.0-96.0); MONO # 0.5 10^3/uL (0.0-0.8); MONO % 5.8 % (2.0-8.0); NEUTROPHILS # 5.1 10^3/uL (1.5-8.5); NEUTROPHILS % 62.2 % (36.0-66.0); PLATELET COUNT, AUTOMATED 248 10^3/uL (150-450); RED BLOOD COUNT 5.33 10^6/uL (4.00-5.40); WHITE BLOOD COUNT 8.2 10^3/uL (4.0-10.0)
[2020-11-25 15:11] LABS: ERYTHROCYTE SEDIMENTATION RATE 3 mm/hr (0-30)
[2020-11-25 15:16] LABS: ALBUMIN 3.7 GM/DL (3.2-5.2); ALT/SGPT 61 U/L (12-78); BILIRUBIN,TOTAL 0.5 MG/DL (0.2-1.0); BLOOD UREA NITROGEN 15 MG/DL (7-18); CALCIUM LEVEL 8.3 MG/DL (8.5-10.1); CARBON DIOXIDE LEVEL 27 MEQ/L (21-32); CHLORIDE LEVEL 107 MEQ/L (98-107); CREATININE FOR GFR 0.89 MG/DL (0.55-1.30); FOLATE 8.4 NG/ML; FREE THYROXINE INDEX 2.4 % (1.3-4.8); GLOMERULAR FILTRATION RATE > 60.0 (>51); GLUCOSE, FASTING 90 MG/DL (70-100); POTASSIUM SERUM 4.2 MEQ/L (3.5-5.1); SODIUM LEVEL 139 MEQ/L (136-145); T UPTAKE 32 % (30-39); THYROID STIMULATING HORMONE 0.915 uIU/ML (0.358-3.740); THYROXINE (T4) 7.6 UG/DL (4.5-12.0); TOTAL PROTEIN 6.9 GM/DL (6.4-8.2); VITAMIN B12 LEVEL 788 PG/ML
[2020-11-25 15:27] LABS: HEMOGLOBIN A1c 5.7 %
[2020-11-26 13:59] LABS: ALBUMIN 4.06 GM/DL (3.29-5.55); ALBUMIN % 58.8 % (55.8-66.1); ALPHA-1-GLOBULIN % 4.3 % (2.9-4.9); ALPHA-2-GLOBULINS 0.66 GM/DL (0.42-0.99); ALPHA-2-GLOBULINS % 9.6 % (7.1-11.8); BETA-1-GLOBULINS 0.39 GM/DL (0.28-0.60); BETA-1-GLOBULINS % 5.7 % (4.7-7.2); BETA-2-GLOBULINS 0.35 GM/DL (0.19-0.55); BETA-2-GLOBULINS % 5.1 % (3.2-6.5); GAMMA GLOBULIN % 16.5 % (11.1-18.8); GAMMA GLOBULINS 1.14 GM/DL (0.65-1.58)
== END ==
LOC: M PLALAB 09:55
PROVIDERS: ATTEND Psychiatry & Neurology Neurology
DX: E11.9 Type 2 diabetes mellitus without complications (principal); E07.9 Disorder of thyroid, unspecified

== ENCOUNTER → 2020-12-28 | Outpatient (CLI) | payer BC ==
--- NOTE | 2020-12-28 09:33 | REP ---
INDICATION: R05 COUGH. COMPARISON: 07/03/2020 TECHNIQUE: PA and lateral FINDINGS: The superior mediastinal structures are midline. The cardiac silhouette is unremarkable in size, shape, and position. The diaphragmatic surfaces of the lungs are regular, and the costophrenic angles are clear. The pulmonary to are clear. The imaged osseous structures are intact. IMPRESSION: There is no acute cardiopulmonary disease. <Electronically signed by Tyrone Gaston > 12/28/20 [id number]
--- NOTE | 2020-12-28 09:38 | REP ---
INDICATION: M79.605 PAIN IN LEFT LEG, M79.604 PAIN IN RIGHT LEG COMPARISON: 08/12/2014 right knee from an outside institution TECHNIQUE: Five views each knee FINDINGS: Right knee: Once again, there is a benign intramedullary distal femoral bone lesion consistent with a benign enchondroma. The compartments are symmetric and well maintained status quo. There is no acute fracture, dislocation, or subluxation. Left knee: The compartments are symmetric and well maintained. There is a subtle degree of air density in the medial compartment. There is no acute fracture, dislocation, or subluxation. IMPRESSION: 1. No change in appearance of the right knee. No acute disease. 2. Subtle degree of air density seen in the left knee medial compartment possibly secondary to acute meniscal injury. This needs to be correlated clinically and if necessary obtain MRI. <Electronically signed by Tyrone Gaston > 12/28/20 [id number]
== END ==
LOC: M CLY 08:44
PROVIDERS: ATTEND Family Medicine
DX: M79.605 Pain in left leg (principal); M79.604 Pain in right leg; R05 Cough

== ENCOUNTER → 2021-02-12 | Outpatient (CLI) | payer BC ==
--- NOTE | 2021-02-12 14:37 | REP ---
INDICATION: COVID 19. COMPARISON: 12/28/2020 TECHNIQUE: PA and lateral FINDINGS: The superior mediastinal structures are midline. The cardiac silhouette is unremarkable in size, shape, and position. The diaphragmatic surfaces of the lungs are regular, and the costophrenic angles are clear. The pulmonary to are clear. The imaged osseous structures are intact. IMPRESSION: There is no acute cardiopulmonary disease. <Electronically signed by Tyrone Gaston > 02/12/21 [id number]
== END ==
LOC: M CLY 14:15
PROVIDERS: ATTEND Family Medicine
DX: U07.1 COVID-19 (principal); R05.9 Cough, unspecified

== ENCOUNTER → 2021-04-08 | Outpatient (REF) | payer BC ==
[2021-04-08 11:41] LABS: BASO % 0.3 % (0.0-1.0); EOS # 0.2 10^3/uL (0.0-0.5); EOS % 1.5 % (0.0-3.0); HEMATOCRIT 48.5 % (36.0-47.0); HEMOGLOBIN 15.4 g/dl (12.0-15.5); LYMPH # 2.6 10^3/uL (1.5-5.0); LYMPH % 26.8 % (24.0-44.0); MEAN CORPUSCULAR HEMOGLOBIN 27.6 pg (27.0-33.0); MEAN CORPUSCULAR HGB CONC 31.8 g/dl (32.0-36.5); MEAN CORPUSCULAR VOLUME 87.1 fl (80.0-96.0); MONO # 0.6 10^3/uL (0.0-0.8); MONO % 6.3 % (2.0-8.0); NEUTROPHILS # 6.2 10^3/uL (1.5-8.5); NEUTROPHILS % 64.5 % (36.0-66.0); PLATELET COUNT, AUTOMATED 294 10^3/uL (150-450); RED BLOOD COUNT 5.57 10^6/uL (4.00-5.40); WHITE BLOOD COUNT 9.7 10^3/uL (4.0-10.0)
[2021-04-08 12:19] LABS: ALBUMIN 3.9 GM/DL (3.2-5.2); ALT/SGPT 42 U/L (12-78); BILIRUBIN,TOTAL 0.5 MG/DL (0.2-1.0); BLOOD UREA NITROGEN 16 MG/DL (7-18); CARBON DIOXIDE LEVEL 28 MEQ/L (21-32); CHLORIDE LEVEL 109 MEQ/L (98-107); CHOLESTEROL LEVEL 204 MG/DL (<200); CREATININE FOR GFR 0.99 MG/DL (0.55-1.30); GLOMERULAR FILTRATION RATE > 60.0 (>51); GLUCOSE, FASTING 112 MG/DL (70-100); HDL CHOLESTEROL 50 MG/DL (>40); IRON (FE) 89 UG/DL (50-170); LDL CHOLESTEROL 132 MG/DL (<100); MAGNESIUM LEVEL 2.4 MG/DL (1.8-2.4); NON-HDL-C 154 MG/DL; POTASSIUM SERUM 4.7 MEQ/L (3.5-5.1); SODIUM LEVEL 140 MEQ/L (136-145); TOTAL PROTEIN 7.3 GM/DL (6.4-8.2); TRIGLYCERIDES LEVEL 110 MG/DL (<150)
[2021-04-08 13:09] LABS: HEMOGLOBIN A1c 5.3 %
== END ==
LOC: M SFHCCLAY 08:01
PROVIDERS: ATTEND Family Medicine
DX: I10 Essential (primary) hypertension (principal); R73.01 Impaired fasting glucose; D50.9 Iron deficiency anemia, unspecified; E55.9 Vitamin D deficiency, unspecified; K21.9 Gastro-esophageal reflux disease without esophagitis

== ENCOUNTER → 2021-05-24 | Outpatient (REF) | payer BC | LOC: M SFHCCLAY 15:52 | PROVIDERS: ATTEND Family Medicine | DX: H92.02 Otalgia, left ear (principal); J02.9 Acute pharyngitis, unspecified ==

== ENCOUNTER → 2021-07-07 | Outpatient (CLI) | payer BC | LOC: M RAD 10:38 | PROVIDERS: ATTEND Physician Assistant | DX: M16.11 Unilateral primary osteoarthritis, right hip (principal) ==

== ENCOUNTER → 2021-07-12 | Outpatient (REF) | payer BC ==
[2021-07-13 12:45] LABS: BASO # 0.1 10^3/uL (0.0-0.2); BASO % 0.6 % (0.0-1.0); EOS # 0.4 10^3/uL (0.0-0.5); EOS % 3.2 % (0.0-3.0); HEMATOCRIT 46.6 % (36.0-47.0); HEMOGLOBIN 15.3 g/dl (12.0-15.5); LYMPH # 3.3 10^3/uL (1.5-5.0); LYMPH % 29.2 % (24.0-44.0); MEAN CORPUSCULAR HEMOGLOBIN 28.3 pg (27.0-33.0); MEAN CORPUSCULAR HGB CONC 32.8 g/dl (32.0-36.5); MEAN CORPUSCULAR VOLUME 86.1 fl (80.0-96.0); MONO # 0.7 10^3/uL (0.0-0.8); MONO % 6.1 % (2.0-8.0); NEUTROPHILS # 6.7 10^3/uL (1.5-8.5); NEUTROPHILS % 59.9 % (36.0-66.0); PLATELET COUNT, AUTOMATED 322 10^3/uL (150-450); RED BLOOD COUNT 5.41 10^6/uL (4.00-5.40); WHITE BLOOD COUNT 11.2 10^3/uL (4.0-10.0)
[2021-07-13 13:39] LABS: ALBUMIN 4.1 GM/DL (3.2-5.2); BILIRUBIN,TOTAL 0.5 MG/DL (0.2-1.0); CALCIUM LEVEL 9.2 MG/DL (8.5-10.1); CREATININE FOR GFR 1.09 MG/DL (0.55-1.30); GLOMERULAR FILTRATION RATE 56.1 (>51); POTASSIUM SERUM 6.2 MEQ/L (3.5-5.1); TOTAL PROTEIN 7.7 GM/DL (6.4-8.2)
== END ==
LOC: M SFHCCLAY 15:10
PROVIDERS: ATTEND Family Medicine
DX: D50.9 Iron deficiency anemia, unspecified (principal); I10 Essential (primary) hypertension

== ENCOUNTER → 2022-03-14 | Outpatient (REF) | payer BC ==
[~2022-03-14] MED LIST changes: +ALBU6.7H6 INH; -PROV108A INH
[2022-03-14 11:45] LABS: MAGNESIUM LEVEL 1.9 MG/DL (1.8-2.4)
[2022-03-14 11:46] LABS: ALKALINE PHOSPHATASE 101 U/L (46-116); ALT/SGPT 51 U/L (7.0-40); AST/SGOT 30 U/L (<34); BILIRUBIN,TOTAL 0.7 MG/DL (0.3-1.2); BLOOD UREA NITROGEN 18 MG/DL (9-23); CALCIUM LEVEL 9.1 MG/DL (8.5-10.1); CARBON DIOXIDE LEVEL 27 MMOL/L (20-31); CHLORIDE LEVEL 103 MMOL/L (98-107); CREATININE FOR GFR 0.92 MG/DL (0.55-1.30); GLOMERULAR FILTRATION RATE > 60.0 (>51); GLUCOSE, FASTING 143 MG/DL (60-100); IRON (FE) 87 UG/DL (50-170); POTASSIUM SERUM 4.4 MMOL/L (3.5-5.1); SODIUM LEVEL 139 MMOL/L (136-145); THYROID STIMULATING HORMONE 1.316 uIU/ML (0.55-4.78); TOTAL PROTEIN 7.1 G/DL (5.7-8.2)
[2022-03-14 11:47] LABS: BASO % 0.3 % (0.0-1.0); EOS # 0.5 10^3/uL (0.0-0.5); EOS % 5.6 % (0.0-3.0); HEMATOCRIT 46.7 % (36.0-47.0); HEMOGLOBIN 14.9 g/dl (12.0-15.5); LYMPH # 2.4 10^3/uL (1.5-5.0); LYMPH % 28.4 % (24.0-44.0); MEAN CORPUSCULAR HEMOGLOBIN 27.4 pg (27.0-33.0); MEAN CORPUSCULAR HGB CONC 31.9 g/dl (32.0-36.5); MONO # 0.6 10^3/uL (0.0-0.8); MONO % 6.8 % (2.0-8.0); NEUTROPHILS % 58.1 % (36.0-66.0); PLATELET COUNT, AUTOMATED 280 10^3/uL (150-450); RED BLOOD COUNT 5.43 10^6/uL (4.00-5.40); TOTAL T3 133.6 NG/DL (60.0-181.0); WHITE BLOOD COUNT 8.6 10^3/uL (4.0-10.0)
== END ==
LOC: M SFHCCLAY 08:09
PROVIDERS: ATTEND Family Medicine
DX: D50.9 Iron deficiency anemia, unspecified (principal); K21.9 Gastro-esophageal reflux disease without esophagitis; R73.01 Impaired fasting glucose; E55.9 Vitamin D deficiency, unspecified; I10 Essential (primary) hypertension; R00.2 Palpitations

== ENCOUNTER → 2022-06-20 | Outpatient (CLI) | payer BC | LOC: M CLY 10:47 | PROVIDERS: ATTEND Family Medicine | DX: M25.552 Pain in left hip (principal) ==

== ENCOUNTER → 2022-10-21 | Outpatient (REF) | payer BC ==
[2022-10-21 12:21] LABS: HEMATOCRIT 48.1 % (36.0-47.0); HEMOGLOBIN 15.4 g/dl (12.0-15.5); MEAN CORPUSCULAR HEMOGLOBIN 27.8 pg (27.0-33.0); MEAN CORPUSCULAR VOLUME 86.8 fl (80.0-96.0); PLATELET COUNT, AUTOMATED 306 10^3/uL (150-450); RED BLOOD COUNT 5.54 10^6/uL (4.00-5.40); WHITE BLOOD COUNT 10.1 10^3/uL (4.0-10.0)
[2022-10-21 12:56] LABS: ALBUMIN 3.9 G/DL (3.2-5.2); ALKALINE PHOSPHATASE 125 U/L (46-116); ALT/SGPT 41 U/L (7.0-40); AST/SGOT 15 U/L (<34); BILIRUBIN,TOTAL 0.4 MG/DL (0.3-1.2); BLOOD UREA NITROGEN 16 MG/DL (9-23); CALCIUM LEVEL 9.4 MG/DL (8.5-10.1); CARBON DIOXIDE LEVEL 28 MMOL/L (20-31); CHLORIDE LEVEL 104 MMOL/L (98-107); CREATININE FOR GFR 0.84 MG/DL (0.55-1.30); FREE T4 0.98 NG/DL (0.89-1.76); GLOMERULAR FILTRATION RATE > 60.0 (>51); GLUCOSE, FASTING 117 MG/DL (60-100); IRON (FE) 62 UG/DL (50-170); MAGNESIUM LEVEL 2.1 MG/DL (1.8-2.4); POTASSIUM SERUM 4.6 MMOL/L (3.5-5.1); SODIUM LEVEL 139 MMOL/L (136-145); THYROID STIMULATING HORMONE 1.823 uIU/ML (0.55-4.78); TOTAL PROTEIN 7.3 G/DL (5.7-8.2)
== END ==
LOC: M SFHCCLAY 08:20
PROVIDERS: ATTEND Family Medicine
DX: I10 Essential (primary) hypertension (principal); K21.9 Gastro-esophageal reflux disease without esophagitis; D50.9 Iron deficiency anemia, unspecified

== ENCOUNTER → 2022-11-21 | Outpatient (REF) | payer BC ==
[2022-11-21 18:56] LABS: BASO % 0.5 % (0.0-1.0); EOS # 0.2 10^3/uL (0.0-0.5); EOS % 2.5 % (0.0-3.0); HEMATOCRIT 47.6 % (36.0-47.0); LYMPH # 2.5 10^3/uL (1.5-5.0); LYMPH % 28.8 % (24.0-44.0); MEAN CORPUSCULAR HEMOGLOBIN 27.1 pg (27.0-33.0); MEAN CORPUSCULAR HGB CONC 31.5 g/dl (32.0-36.5); MEAN CORPUSCULAR VOLUME 86.1 fl (80.0-96.0); MONO # 0.5 10^3/uL (0.0-0.8); MONO % 5.2 % (2.0-8.0); NEUTROPHILS # 5.4 10^3/uL (1.5-8.5); NEUTROPHILS % 62.3 % (36.0-66.0); PLATELET COUNT, AUTOMATED 284 10^3/uL (150-450); RED BLOOD COUNT 5.53 10^6/uL (4.00-5.40); WHITE BLOOD COUNT 8.7 10^3/uL (4.0-10.0)
[2022-11-21 19:19] LABS: LIPASE 35 U/L (12-53)
[2022-11-21 19:20] LABS: AMYLASE 35 U/L (30-118)
[2022-11-21 19:21] LABS: ALBUMIN 3.7 G/DL (3.2-5.2); ALKALINE PHOSPHATASE 112 U/L (46-116); ALT/SGPT 40 U/L (7.0-40); AST/SGOT 20 U/L (<34); BILIRUBIN,TOTAL 0.4 MG/DL (0.3-1.2); BLOOD UREA NITROGEN 15 MG/DL (9-23); CALCIUM LEVEL 9.5 MG/DL (8.5-10.1); CARBON DIOXIDE LEVEL 28 MMOL/L (20-31); CHLORIDE LEVEL 104 MMOL/L (98-107); CREATININE FOR GFR 0.88 MG/DL (0.55-1.30); GLOMERULAR FILTRATION RATE > 60.0 (>51); GLUCOSE, FASTING 148 MG/DL (60-100); POTASSIUM SERUM 4.6 MMOL/L (3.5-5.1); SODIUM LEVEL 139 MMOL/L (136-145); TOTAL PROTEIN 7.1 G/DL (5.7-8.2)
[2022-11-23 18:07] LABS: H PYLORI SERUM QUANT IGA <9.0 units (0.0-8.9); H PYLORI SERUM QUANT IGM <9.0 units (0.0-8.9); H PYLORI SERUM QUANT IgG ABY 0.36 (0.00-0.79)
== END ==
LOC: M SFHCCLAY 09:32
PROVIDERS: ATTEND Family Medicine
DX: K21.9 Gastro-esophageal reflux disease without esophagitis (principal); R10.2 Pelvic and perineal pain

== ENCOUNTER → 2022-11-21 | Outpatient (CLI) | payer BC | LOC: M CLY 09:56 | PROVIDERS: ATTEND Family Medicine | DX: R10.2 Pelvic and perineal pain (principal); K21.9 Gastro-esophageal reflux disease without esophagitis ==

== ENCOUNTER → 2023-02-21 | Outpatient (REF) | payer BC ==
[2023-02-21 11:51] LABS: HEMATOCRIT 46.8 % (36.0-47.0); HEMOGLOBIN 15.1 g/dl (12.0-15.5); MEAN CORPUSCULAR HEMOGLOBIN 27.4 pg (27.0-33.0); MEAN CORPUSCULAR HGB CONC 32.3 g/dl (32.0-36.5); MEAN CORPUSCULAR VOLUME 84.8 fl (80.0-96.0); PLATELET COUNT, AUTOMATED 285 10^3/uL (150-450); RED BLOOD COUNT 5.52 10^6/uL (4.00-5.40); WHITE BLOOD COUNT 8.7 10^3/uL (4.0-10.0)
[2023-02-21 12:06] LABS: IRON (FE) 67 UG/DL (50-170); PERCENT SATURATION 20.3 % (13.2-45.0); TOTAL IRON BINDING CAPACITY 330 UG/DL (250-425)
[2023-02-21 12:10] LABS: ALKALINE PHOSPHATASE 128 U/L (46-116); ALT/SGPT 59 U/L (7.0-40); AST/SGOT 32 U/L (<34); BILIRUBIN,TOTAL 0.5 MG/DL (0.3-1.2); BLOOD UREA NITROGEN 18 MG/DL (9-23); CALCIUM LEVEL 9.2 MG/DL (8.5-10.1); CARBON DIOXIDE LEVEL 26 MMOL/L (20-31); CHLORIDE LEVEL 104 MMOL/L (98-107); CHOLESTEROL LEVEL 209 MG/DL (<200); CHOLESTEROL RISK RATIO 5.29 (<5); CREATININE FOR GFR 0.85 MG/DL (0.55-1.30); GLOMERULAR FILTRATION RATE > 60.0 (>51); GLUCOSE, FASTING 153 MG/DL (60-100); HDL CHOLESTEROL 39.5 MG/DL (>40); LDL CHOLESTEROL 130.1 MG/DL (<100); NON-HDL-C 169.5 MG/DL; POTASSIUM SERUM 4.4 MMOL/L (3.5-5.1); SODIUM LEVEL 139 MMOL/L (136-145); TOTAL PROTEIN 7.1 G/DL (5.7-8.2); TRIGLYCERIDES LEVEL 197 MG/DL (<150)
[2023-02-21 13:02] LABS: HEMOGLOBIN A1c 7.3 % (4.0-6.0)
== END ==
LOC: M SFHCCLAY 08:08
PROVIDERS: ATTEND Family Medicine
DX: I10 Essential (primary) hypertension (principal); K21.9 Gastro-esophageal reflux disease without esophagitis; D50.9 Iron deficiency anemia, unspecified; E55.9 Vitamin D deficiency, unspecified; R73.01 Impaired fasting glucose

== ENCOUNTER → 2023-04-04 | Outpatient (CLI) | payer BC | LOC: M CLY 10:46 | PROVIDERS: ATTEND Family Medicine | DX: J18.9 Pneumonia, unspecified organism (principal); Z53.8 Procedure and treatment not carried out for other reasons ==

== ENCOUNTER → 2023-05-01 | Outpatient (CLI) | payer BC | LOC: M CLY 14:19 | PROVIDERS: ATTEND Family Medicine | DX: Z53.9 Procedure and treatment not carried out, unspecified reason (principal) ==

== ENCOUNTER → 2023-05-01 | Outpatient (CLI) | payer BC | LOC: M CLY 14:32 | PROVIDERS: ATTEND Family Medicine | DX: J18.9 Pneumonia, unspecified organism (principal) ==

== ENCOUNTER → 2023-05-26 | Outpatient (REF) | payer BC, MEDICAID, OTHER ==
[2023-05-26 16:32] LABS: HEMATOCRIT 46.8 % (36.0-47.0); HEMOGLOBIN 15.3 g/dl (12.0-15.5); MEAN CORPUSCULAR HEMOGLOBIN 27.6 pg (27.0-33.0); MEAN CORPUSCULAR HGB CONC 32.7 g/dl (32.0-36.5); MEAN CORPUSCULAR VOLUME 84.3 fl (80.0-96.0); PLATELET COUNT, AUTOMATED 278 10^3/uL (150-450); RED BLOOD COUNT 5.55 10^6/uL (4.00-5.40); WHITE BLOOD COUNT 8.9 10^3/uL (4.0-10.0)
[2023-05-26 16:42] LABS: HEMOGLOBIN A1c 6.4 % (4.0-6.0)
[2023-05-26 16:58] LABS: ALBUMIN 3.9 G/DL (3.2-5.2); ALKALINE PHOSPHATASE 113 U/L (46-116); ALT/SGPT 58 U/L (7.0-40); AST/SGOT 30 U/L (<34); BILIRUBIN,TOTAL 0.5 MG/DL (0.3-1.2); BLOOD UREA NITROGEN 18 MG/DL (9-23); CALCIUM LEVEL 9.4 MG/DL (8.5-10.1); CARBON DIOXIDE LEVEL 30 MMOL/L (20-31); CHLORIDE LEVEL 107 MMOL/L (98-107); CREATININE FOR GFR 0.93 MG/DL (0.55-1.30); GLOMERULAR FILTRATION RATE > 60.0 (>51); GLUCOSE, FASTING 127 MG/DL (60-100); IRON (FE) 86 UG/DL (50-170); POTASSIUM SERUM 4.9 MMOL/L (3.5-5.1); SODIUM LEVEL 141 MMOL/L (136-145)
[2023-05-26 17:02] LABS: VITAMIN B12 LEVEL 327 PG/ML (211-911)
== END ==
LOC: M SFHCCLAY 09:06
PROVIDERS: ATTEND Family Medicine
DX: D50.9 Iron deficiency anemia, unspecified (principal); R73.01 Impaired fasting glucose

== ENCOUNTER → 2023-06-20 | Outpatient (CLI) | payer OTHER ==
[~2023-06-20] MED LIST changes: +PROHANCE 279.3MG/ML 15ML VIAL As Ordered ONE; +PROHANCE 279.3MG/ML 5ML VIAL As Ordered ONE
== END ==
LOC: M RAD 15:31
PROVIDERS: ATTEND Physician Assistant
DX: M17.11 Unilateral primary osteoarthritis, right knee (principal); D16.21 Benign neoplasm of long bones of right lower limb
CPT/HCPCS: 73723; A9576

== ENCOUNTER → 2023-08-21 | Outpatient (REF) | payer OTHER, MEDICAID ==
[~2023-08-21] MED LIST changes: -PROHANCE 279.3MG/ML 15ML VIAL As Ordered ONE; -PROHANCE 279.3MG/ML 5ML VIAL As Ordered ONE
== END ==
LOC: M SFHCCLAY 16:22
PROVIDERS: ATTEND Family Medicine
DX: I10 Essential (primary) hypertension (principal); M76.62 Achilles tendinitis, left leg; D50.9 Iron deficiency anemia, unspecified; R73.01 Impaired fasting glucose

== ENCOUNTER → 2023-08-22 | Outpatient (REF) | payer OTHER, MEDICAID ==
[2023-08-22 12:22] LABS: HEMATOCRIT 46.8 % (36.0-47.0); HEMOGLOBIN 14.8 g/dl (12.0-15.5); MEAN CORPUSCULAR HEMOGLOBIN 27.2 pg (27.0-33.0); MEAN CORPUSCULAR HGB CONC 31.6 g/dl (32.0-36.5); PLATELET COUNT, AUTOMATED 254 10^3/uL (150-450); RED BLOOD COUNT 5.44 10^6/uL (4.00-5.40); WHITE BLOOD COUNT 8.1 10^3/uL (4.0-10.0)
[2023-08-22 12:24] LABS: ALBUMIN 3.8 G/DL (3.2-5.2); ALKALINE PHOSPHATASE 128 U/L (46-116); ALT/SGPT 68 U/L (7.0-40); AST/SGOT 42 U/L (<34); BILIRUBIN,TOTAL 0.4 MG/DL (0.3-1.2); BLOOD UREA NITROGEN 16 MG/DL (9-23); CALCIUM LEVEL 9.4 MG/DL (8.5-10.1); CARBON DIOXIDE LEVEL 28 MMOL/L (20-31); CHLORIDE LEVEL 103 MMOL/L (98-107); CREATININE FOR GFR 0.91 MG/DL (0.55-1.30); GLOMERULAR FILTRATION RATE > 60.0 (>51); GLUCOSE, FASTING 180 MG/DL (60-100); IRON (FE) 56 UG/DL (50-170); POTASSIUM SERUM 4.5 MMOL/L (3.5-5.1); SODIUM LEVEL 138 MMOL/L (136-145); TOTAL PROTEIN 6.8 G/DL (5.7-8.2)
[2023-08-22 12:53] LABS: HEMOGLOBIN A1c 6.6 % (4.0-6.0)
== END ==
LOC: M SFHCCLAY 07:33
PROVIDERS: ATTEND Family Medicine
DX: I10 Essential (primary) hypertension (principal); M76.62 Achilles tendinitis, left leg; D50.9 Iron deficiency anemia, unspecified; R73.01 Impaired fasting glucose

== ENCOUNTER → 2023-10-09 | Outpatient (REF) | payer OTHER, MEDICAID ==
[2023-10-09 12:51] LABS: HEMOGLOBIN 15.4 g/dl (12.0-15.5); MEAN CORPUSCULAR HEMOGLOBIN 27.3 pg (27.0-33.0); MEAN CORPUSCULAR HGB CONC 32.1 g/dl (32.0-36.5); PLATELET COUNT, AUTOMATED 241 10^3/uL (150-450); RED BLOOD COUNT 5.65 10^6/uL (4.00-5.40); WHITE BLOOD COUNT 8.5 10^3/uL (4.0-10.0)
== END ==
LOC: M SFHCCLAY 07:09
PROVIDERS: ATTEND Family Medicine
DX: I10 Essential (primary) hypertension (principal); D50.9 Iron deficiency anemia, unspecified

== ENCOUNTER → 2023-11-21 | Outpatient (REF) | payer OTHER, MEDICAID ==
[2023-11-21 17:26] LABS: HEMATOCRIT 50.3 % (36.0-47.0); HEMOGLOBIN 15.8 g/dl (12.0-15.5); MEAN CORPUSCULAR HEMOGLOBIN 26.6 pg (27.0-33.0); MEAN CORPUSCULAR HGB CONC 31.4 g/dl (32.0-36.5); MEAN CORPUSCULAR VOLUME 84.7 fl (80.0-96.0); PLATELET COUNT, AUTOMATED 277 10^3/uL (150-450); RED BLOOD COUNT 5.94 10^6/uL (4.00-5.40); WHITE BLOOD COUNT 7.8 10^3/uL (4.0-10.0)
[2023-11-21 17:45] LABS: HEMOGLOBIN A1c 6.1 % (4.0-6.0)
[2023-11-21 17:59] LABS: IRON (FE) 67 UG/DL (50-170)
[2023-11-21 18:00] LABS: ALKALINE PHOSPHATASE 127 U/L (46-116); ALT/SGPT 55 U/L (7.0-40); AST/SGOT 29 U/L (<34); BILIRUBIN,TOTAL 0.5 MG/DL (0.3-1.2); BLOOD UREA NITROGEN 12 MG/DL (9-23); CALCIUM LEVEL 9.4 MG/DL (8.5-10.1); CARBON DIOXIDE LEVEL 27 MMOL/L (20-31); CHLORIDE LEVEL 107 MMOL/L (98-107); GLOMERULAR FILTRATION RATE > 60.0 (>51); GLUCOSE, FASTING 95 MG/DL (60-100); SODIUM LEVEL 138 MMOL/L (136-145); TOTAL PROTEIN 7.1 G/DL (5.7-8.2)
== END ==
LOC: M SFHCCLAY 10:56
PROVIDERS: ATTEND Family Medicine
DX: E11.9 Type 2 diabetes mellitus without complications (principal); D50.9 Iron deficiency anemia, unspecified

== ENCOUNTER → 2023-11-24 | Outpatient (CLI) | payer OTHER | LOC: M WHC 11:54 | PROVIDERS: ATTEND Family Medicine | DX: Z12.31 Encounter for screening mammogram for malignant neoplasm of breast (principal); R92.323 Mammographic fibroglandular density, bilateral breasts ==

== ENCOUNTER → 2023-12-13 | Outpatient (CLI) | payer OTHER | LOC: M CLY 09:39 | PROVIDERS: ATTEND Physician Assistant | DX: R05.1 Acute cough (principal) ==

== ENCOUNTER → 2023-12-13 | Outpatient (CLI) | payer OTHER, MEDICAID | LOC: M CLY 09:30 | PROVIDERS: ATTEND Physician Assistant | DX: R05.1 Acute cough (principal); Z53.9 Procedure and treatment not carried out, unspecified reason ==

== ENCOUNTER → 2024-02-12 | Outpatient (REF) | payer MEDICAID, OTHER ==
[2024-02-12 17:39] LABS: HEMATOCRIT 51.2 % (36.0-47.0); HEMOGLOBIN 16.6 g/dl (12.0-15.5); MEAN CORPUSCULAR HEMOGLOBIN 26.9 pg (27.0-33.0); MEAN CORPUSCULAR HGB CONC 32.4 g/dl (32.0-36.5); MEAN CORPUSCULAR VOLUME 82.8 fl (80.0-96.0); PLATELET COUNT, AUTOMATED 272 10^3/uL (150-450); RED BLOOD COUNT 6.18 10^6/uL (4.00-5.40); WHITE BLOOD COUNT 8.5 10^3/uL (4.0-10.0)
[2024-02-12 18:02] LABS: ALBUMIN 3.9 G/DL (3.2-5.2); ALKALINE PHOSPHATASE 124 U/L (35-104); ALT/SGPT 39 U/L (7.0-40); AST/SGOT 20 U/L (<34); BILIRUBIN,TOTAL 0.5 MG/DL (0.3-1.2); BLOOD UREA NITROGEN 15 MG/DL (9-23); CALCIUM LEVEL 9.8 MG/DL (8.5-10.1); CARBON DIOXIDE LEVEL 26 MMOL/L (20-31); CHLORIDE LEVEL 108 MMOL/L (98-107); CREATININE FOR GFR 0.95 MG/DL (0.55-1.30); GLOMERULAR FILTRATION RATE > 60.0 (>51); GLUCOSE, FASTING 96 MG/DL (60-100); IRON (FE) 75 UG/DL (50-170); POTASSIUM SERUM 5.8 MMOL/L (3.5-5.1); SODIUM LEVEL 141 MMOL/L (136-145); TOTAL PROTEIN 7.3 G/DL (5.7-8.2)
== END ==
LOC: M SFHCCLAY 09:09
PROVIDERS: ATTEND Family Medicine
DX: E11.9 Type 2 diabetes mellitus without complications (principal); D50.9 Iron deficiency anemia, unspecified

== ENCOUNTER → 2024-02-12 | Outpatient (CLI) | payer OTHER, MEDICAID | LOC: M CLY 09:34 | PROVIDERS: ATTEND Family Medicine | DX: M79.641 Pain in right hand (principal); M79.642 Pain in left hand ==

== ENCOUNTER → 2024-02-14 | Outpatient (REF) | payer OTHER, MEDICAID ==
[2024-02-14 13:15] LABS: BLOOD UREA NITROGEN 18 MG/DL (9-23); CALCIUM LEVEL 9.7 MG/DL (8.5-10.1); CARBON DIOXIDE LEVEL 27 MMOL/L (20-31); CHLORIDE LEVEL 107 MMOL/L (98-107); CREATININE FOR GFR 0.96 MG/DL (0.55-1.30); GLOMERULAR FILTRATION RATE > 60.0 (>51); GLUCOSE, FASTING 124 MG/DL (60-100); POTASSIUM SERUM 4.6 MMOL/L (3.5-5.1); SODIUM LEVEL 140 MMOL/L (136-145)
== END ==
LOC: M SFHCCLAY 08:49
PROVIDERS: ATTEND Family Medicine
DX: E87.5 Hyperkalemia (principal)

== ENCOUNTER → 2024-03-12 | Outpatient (REF) | payer OTHER, MEDICAID | LOC: M SFHCCLAY 09:23 | PROVIDERS: ATTEND Physician Assistant | DX: R30.0 Dysuria (principal) ==

== ENCOUNTER → 2024-05-16 | Outpatient (REF) | payer OTHER, MEDICAID ==
[2024-05-16 18:34] LABS: HEMATOCRIT 52.4 % (36.0-47.0); HEMOGLOBIN 16.7 g/dl (12.0-15.5); MEAN CORPUSCULAR HEMOGLOBIN 26.6 pg (27.0-33.0); MEAN CORPUSCULAR HGB CONC 31.9 g/dl (32.0-36.5); MEAN CORPUSCULAR VOLUME 83.3 fl (80.0-96.0); PLATELET COUNT, AUTOMATED 278 10^3/uL (150-450); RED BLOOD COUNT 6.29 10^6/uL (4.00-5.40); WHITE BLOOD COUNT 8.2 10^3/uL (4.0-10.0)
[2024-05-16 18:44] LABS: ERYTHROCYTE SEDIMENTATION RATE 25 mm/hr (0-30)
[2024-05-16 18:48] LABS: HEMOGLOBIN A1c 5.4 % (4.0-6.0)
[2024-05-16 18:56] LABS: C REACTIVE PROTEIN QUANTITATIV 0.76 MG/DL (<1.0)
[2024-05-16 18:57] LABS: IRON (FE) 66 UG/DL (50-170)
[2024-05-16 18:58] LABS: ALKALINE PHOSPHATASE 112 U/L (35-104); ALT/SGPT 41 U/L (7.0-40); AST/SGOT 27 U/L (<34); BILIRUBIN,TOTAL 0.6 MG/DL (0.3-1.2); BLOOD UREA NITROGEN 15 MG/DL (9-23); CALCIUM LEVEL 9.7 MG/DL (8.5-10.1); CARBON DIOXIDE LEVEL 28 MMOL/L (20-31); CHLORIDE LEVEL 106 MMOL/L (98-107); CHOLESTEROL LEVEL 207 MG/DL (<200); CHOLESTEROL RISK RATIO 5.01 (<5); CREATININE FOR GFR 1.01 MG/DL (0.55-1.30); GLOMERULAR FILTRATION RATE > 60.0 (>51); GLUCOSE, FASTING 97 MG/DL (60-100); HDL CHOLESTEROL 41.3 MG/DL (>40); LDL CHOLESTEROL 136.1 MG/DL (<100); NON-HDL-C 165.7 MG/DL; POTASSIUM SERUM 5.4 MMOL/L (3.5-5.1); SODIUM LEVEL 141 MMOL/L (136-145); TOTAL PROTEIN 7.7 G/DL (5.7-8.2); TRIGLYCERIDES LEVEL 148 MG/DL (<150)
[2024-05-16 19:02] LABS: RHEUMATOID FACTOR QUANT < 3.5 IU/ML (<14)
[2024-05-16 19:03] LABS: THYROID STIMULATING HORMONE 1.245 uIU/ML (0.55-4.78)
== END ==
LOC: M SFHCCLAY 09:57
PROVIDERS: ATTEND Family Medicine
DX: D50.9 Iron deficiency anemia, unspecified (principal); E11.9 Type 2 diabetes mellitus without complications; M79.641 Pain in right hand; M79.642 Pain in left hand; N95.1 Menopausal and female climacteric states

== ENCOUNTER → 2024-06-28 | Outpatient (CLI) | payer OTHER | LOC: M SLEEP HO 11:19 | PROVIDERS: ATTEND Family Medicine | DX: G47.30 Sleep apnea, unspecified (principal) ==

== ENCOUNTER → 2024-07-16 | Outpatient (REF) | LOC: M PLAIMG 10:51 | PROVIDERS: ATTEND Internal Medicine | DX: M54.50 Low back pain, unspecified (principal) ==

== ENCOUNTER → 2024-08-26 | Outpatient (REF) | payer OTHER, MEDICAID ==
[~2024-08-26] MED LIST changes: -PREG50CA PO; +PREG50CA87 PO
[2024-08-26 18:19] LABS: ALBUMIN 4.2 G/DL (3.2-5.2); BILIRUBIN,TOTAL 0.5 MG/DL (0.3-1.2); CALCIUM LEVEL 9.7 MG/DL (8.5-10.1); CREATININE FOR GFR 1.1 MG/DL (0.55-1.30); GLOMERULAR FILTRATION RATE 59.3 (>51); MAGNESIUM LEVEL 2.3 MG/DL (1.8-2.4); POTASSIUM SERUM 4.8 MMOL/L (3.5-5.1); TOTAL PROTEIN 7.7 G/DL (5.7-8.2)
[2024-08-26 18:20] LABS: BASO % 0.4 % (0.0-1.0); EOS # 0.3 10^3/uL (0.0-0.5); EOS % 2.9 % (0.0-3.0); HEMATOCRIT 50.1 % (36.0-47.0); HEMOGLOBIN 16.3 g/dl (12.0-15.5); LYMPH # 2.6 10^3/uL (1.5-5.0); LYMPH % 27.6 % (24.0-44.0); MEAN CORPUSCULAR HEMOGLOBIN 27.3 pg (27.0-33.0); MEAN CORPUSCULAR HGB CONC 32.5 g/dl (32.0-36.5); MEAN CORPUSCULAR VOLUME 83.8 fl (80.0-96.0); MONO # 0.5 10^3/uL (0.0-0.8); MONO % 5.6 % (2.0-8.0); NEUTROPHILS % 62.9 % (36.0-66.0); PLATELET COUNT, AUTOMATED 280 10^3/uL (150-450); RED BLOOD COUNT 5.98 10^6/uL (4.00-5.40); WHITE BLOOD COUNT 9.5 10^3/uL (4.0-10.0)
[2024-08-26 18:21] LABS: FREE T4 0.96 NG/DL (0.89-1.76); THYROID STIMULATING HORMONE 1.361 uIU/ML (0.55-4.78)
[2024-08-26 18:40] LABS: HEMOGLOBIN A1c 5.3 % (4.0-6.0)
== END ==
LOC: M SFHCCLAY 09:23
PROVIDERS: ATTEND Family Medicine
DX: R30.0 Dysuria (principal); R10.9 Unspecified abdominal pain; E11.9 Type 2 diabetes mellitus without complications; I10 Essential (primary) hypertension; D50.9 Iron deficiency anemia, unspecified; K21.9 Gastro-esophageal reflux disease without esophagitis; N95.1 Menopausal and female climacteric states

== ENCOUNTER → 2024-10-10 | Outpatient (REF) | payer MEDICAID, OTHER ==
[~2024-10-10] MED LIST changes: +BUSP5TAB PO; +COLA100C5 PO; +EPIP0.3I2 IM; +FEZO45TA PO; +HYDR1CRE30 TOP; +LIDO1ADH93 TOP; +MIRA3350 PO; +OXYC-141 PO; +PANT40TA29 PO; +SEMA1PEN2 SQ; +SENN-186 PO; +SPIR100T3 PO; +SYMB80INH INH
[2024-10-10 14:50] LABS: PLATELET COUNT, AUTOMATED 286 10^3/uL (150-450)
[2024-10-17 18:24] LABS: IMMUNOGLOBULIN A CELIAC 175 mg/dL (47-310); t-TRANSGLUTAMINASE(tTG) IgA < 1.0 U/mL (<15.0); t-TRANSGLUTAMINASE(tTG) IgG < 1.0 U/mL (<15.0)
== END ==
LOC: M SFHCCLAY 09:48
PROVIDERS: ATTEND Family Medicine
DX: K52.9 Noninfective gastroenteritis and colitis, unspecified (principal); D50.9 Iron deficiency anemia, unspecified

== ENCOUNTER → 2024-10-29 | Outpatient (REF) | payer OTHER, MEDICAID | LOC: M SFHCCLAY 17:05 | PROVIDERS: ATTEND Family Medicine | DX: K52.9 Noninfective gastroenteritis and colitis, unspecified (principal) ==

== ENCOUNTER → 2024-10-31 | Outpatient (CLI) | payer OTHER, MEDICAID | LOC: M WHC 13:43 | PROVIDERS: ATTEND Family Medicine | DX: Z12.31 Encounter for screening mammogram for malignant neoplasm of breast (principal); Z53.9 Procedure and treatment not carried out, unspecified reason ==

== ENCOUNTER → 2024-11-04 | Outpatient (REF) | payer OTHER, MEDICAID | LOC: M SFHCCLAY 16:56 | PROVIDERS: ATTEND Physician Assistant | DX: R30.0 Dysuria (principal) ==

== ENCOUNTER → 2024-11-26 | Outpatient (CLI) | payer OTHER | LOC: M WHC 14:38 | PROVIDERS: ATTEND Family Medicine | DX: Z12.31 Encounter for screening mammogram for malignant neoplasm of breast (principal); R92.323 Mammographic fibroglandular density, bilateral breasts ==

== ENCOUNTER → 2024-11-29 | Outpatient (CLI) | payer OTHER | LOC: M RAD 10:05 | PROVIDERS: ATTEND Physician Assistant | DX: R91.8 Other nonspecific abnormal finding of lung field (principal); J47.9 Bronchiectasis, uncomplicated ==

== ENCOUNTER → 2024-12-04 | Outpatient (CLI) | payer OTHER | LOC: M WHC 11:29 | PROVIDERS: ATTEND Physician Assistant | DX: R10.2 Pelvic and perineal pain (principal); R93.89 Abnormal findings on diagnostic imaging of other specified body structures ==

== ENCOUNTER → 2024-12-04 | Outpatient (CLI) | payer OTHER | LOC: M PLAIMG 11:30 | PROVIDERS: ATTEND Physician Assistant | DX: R10.9 Unspecified abdominal pain (principal) ==

== ENCOUNTER → 2024-12-08 | Outpatient (CLI) | payer OTHER | LOC: M SLEEP 20:00 | PROVIDERS: ATTEND Physician Assistant | DX: G47.33 Obstructive sleep apnea (adult) (pediatric) (principal) ==

== ENCOUNTER → 2024-12-11 | Outpatient (CLI) | payer OTHER ==
[2024-12-11 13:21] LABS: FREE T4 0.96 NG/DL (0.89-1.76); VITAMIN B12 LEVEL 230 PG/ML (211-911)
[2024-12-11 13:27] LABS: ESTIMATED AVERAGE GLUCOSE 114.0 MG/DL (60-110)
[2024-12-11 14:56] LABS: RHEUMATOID FACTOR QUANT < 3.5 IU/ML (<14)
[2024-12-14 14:33] LABS: LYME TOTAL ANTIBODY CIA <= 0.90 Index (<=0.90)
[2024-12-15 01:47] LABS: VITAMIN E(ALPHA TOCOPHEROL) 11.9 mg/L (5.7-19.9); VITAMIN E(GAMMA TOCOPHEROL) 1.1 mg/L (<=4.3)
[2024-12-16 13:46] LABS: VITAMIN B1 LEVEL WHOLE BLOOD 114 nmol/L (78-185)
== END ==
LOC: M PLALAB 08:43
PROVIDERS: ATTEND Psychiatry & Neurology Neurology
DX: R53.83 Other fatigue (principal); E53.8 Deficiency of other specified B group vitamins; E07.9 Disorder of thyroid, unspecified; E11.9 Type 2 diabetes mellitus without complications

== ENCOUNTER → 2025-02-24 | Outpatient (REF) | payer MEDICAID, OTHER ==
[2025-02-24 15:12] LABS: PLATELET COUNT, AUTOMATED 279 10^3/uL (150-450)
[2025-02-24 15:16] LABS: ALT/SGPT 29.0 U/L (7.0-40); AST/SGOT 21.0 U/L (<34); CALCIUM LEVEL 9.0 MG/DL (8.5-10.1); CARBON DIOXIDE LEVEL 27.0 MMOL/L (20-31); CHLORIDE LEVEL 106.0 MMOL/L (98-107); CREATININE FOR GFR 1.04 MG/DL (0.55-1.30); GLOMERULAR FILTRATION RATE 63.1 (>51); IRON (FE) 75.0 UG/DL (50-170); POTASSIUM SERUM 4.4 MMOL/L (3.5-5.1); SODIUM LEVEL 144.0 MMOL/L (136-145); VITAMIN B12 LEVEL 179.0 PG/ML (211-911)
== END ==
LOC: M SFHCCLAY 09:05
PROVIDERS: ATTEND Family Medicine
DX: D50.9 Iron deficiency anemia, unspecified (principal); E53.8 Deficiency of other specified B group vitamins